=== PATIENT | male | born 1950 | race Two or more races ===

== ENCOUNTER 2020-05-07 17:28 | Inpatient (IN) | payer MEDICARE ==
[2020-05-07] MEDS ORDERED: NORMAL SALINE 1000 ML 1,000 ML IV ONE ×3 (18:31→21:27)
[2020-05-07 18:38] LABS: ABSOLUTE LYMPHOCYTES (AUTO) 0.4 10^3/uL (0.5-4.7); ABSOLUTE MONOCYTES (AUTO) 0.3 10^3/uL (0.1-1.4); ABSOLUTE NEUT (AUTO) 6.9 10^3/uL (1.7-8.2); BASOPHILS % (AUTO) 0.4 % (0-2); EOSINOPHILS % (AUTO) 0.1 % (0-6); HEMOGLOBIN 13.6 g/dL (13.5-17.0); LYMPHOCYTES % (AUTO) 5.2 % (13-45); MEAN CORPUSCULAR HGB CONC 33.9 g/dL (32.0-36.0); MEAN CORPUSCULAR VOLUME 83 fl (80-97); MONOCYTES % (AUTO) 3.9 % (3-13); PLATELET COUNT 127 10^3/uL (150-450); RED BLOOD COUNT 4.85 10^6/uL (4.35-5.55); RED CELL DISTRIBUTION WIDTH 17.7 % (11.5-14.0); SEGMENTED NEUTROPHILS % (AUTO) 90.4 % (42-78); TOTAL CELLS COUNTED % (AUTO) 100 %; WHITE BLOOD COUNT 7.7 10^3/uL (4.0-10.5)
[2020-05-07 18:46] LABS: ALBUMIN 3.6 g/dL (3.5-5.0); ALKALINE PHOSPHATASE 44 U/L (38-126); ANION GAP 10 (5-19); ASPARTATE AMINO TRANSFERASE 38 U/L (17-59); BILIRUBIN,DIRECT 0.4 mg/dL (0.0-0.4); BILIRUBIN,TOTAL 0.7 mg/dL (0.2-1.3); BLOOD UREA NITROGEN 17 mg/dL (7-20); CARBON DIOXIDE 23 mmol/L (22-30); CHLORIDE 102 mmol/L (98-107); GLUCOSE 116 mg/dL (75-110); POTASSIUM 3.6 mmol/L (3.6-5.0); TOTAL PROTEIN 6.3 g/dL (6.3-8.2)
--- NOTE | 2020-05-07 19:07 | RADIOLOGY REPORT (SQ) ---
EXAM DESCRIPTION: CHEST SINGLE VIEW IMAGES COMPLETED DATE/TIME: 05/07/2020 6:54 pm REASON FOR STUDY: cough, fever COMPARISON: None. NUMBER OF VIEWS: One view. TECHNIQUE: Single frontal radiographic view of the chest acquired. LIMITATIONS: None. FINDINGS: LUNGS AND PLEURA: No opacities, masses or pneumothorax. No pleural effusion. MEDIASTINUM AND HILAR STRUCTURES: No masses. Contour normal. HEART AND VASCULAR STRUCTURES: Heart normal in size. Normal vasculature. BONES: No acute findings. HARDWARE: None in the chest. OTHER: No other significant finding. IMPRESSION: NO SIGNIFICANT RADIOGRAPHIC FINDING IN THE CHEST. TECHNICAL DOCUMENTATION: JOB ID: [id number] 2010 [employer]- All Rights Reserved Reading location - IP/workstation name: [email or web address]
--- NOTE | 2020-05-07 19:16 | ER Document Report ---
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 this afternoon. Patient says that he suddenly developed fever, hard shaking chills, multiple episodes of vomiting generalized weakness and diffuse myalgias with association of nonproductive cough. He denies dyspnea. He took his temperature at home and says this was 103 degrees. Because he lives alone he decided he should call EMS. He took Tylenol prior to transport. During transport he received some oral Zofran. He reports minimal nausea at this time and states that he feels better overall since his temperature has come down with the antipyretic. Patient denies any specific known exposure to COVID but says he has been seeing patients in the office. States that he is routinely use masks and another preventive measures while engaged in patient care. No travel outside the area. (JEFERSON DIAZ) - Related Data Allergies/Adverse Reactions: No Known Allergies Allergy (Verified 05/07/20 17:47) Past Medical History - General Information source: Patient - Social History Smoking Status: Current Some Day Smoker Frequency of alcohol use: Occasional Drug Abuse: None Lives with: Alone Family History: Reviewed & Not Pertinent - Past Medical History Cardiac Medical History: Reports: Hx Hypercholesterolemia, Hx Hypertension Pulmonary Medical History: Reports: None Endocrine Medical History: Denies: Hx Diabetes Mellitus Type 2 Malignancy Medical History: Reports None Psychiatric Medical History: Reports: None Surgical Hx: Negative <JEFERSON DIAZ - Last Filed: 05/07/20 20:10> Review of Systems <JEFERSON DIAZ - Last Filed: 05/07/20 20:10> - Review of Systems Notes: Constitutional: As per HPI. HENT: Negative for sore throat. Eyes: Negative for visual changes. Cardiovascular: Negative for chest pain. Respiratory: As per HPI. Gastrointestinal: As per HPI. Genitourinary: Negative for dysuria. Musculoskeletal: Diffuse myalgias. Skin: Negative for rash. Neurological: Negative for headaches, focal weakness or numbness. 10 point ROS negative except as marked above and in HPI. (JEFERSON DIAZ) Physical Exam <JEFERSON DIAZ - Last Filed: 05/07/20 20:10> - Vital signs Vitals: Temp Pulse Resp BP Pulse Ox 99.6 F 86 21 H 129/78 H 97 05/07/20 18:00 05/07/20 18:00 05/07/20 18:00 05/07/20 18:00 05/07/20 18:00 - Notes Notes: GENERAL: Well-developed well-nourished male appearing somewhat younger than stated age appearing in no acute distress. SKIN: Mildly diaphoretic. Good turgor no rashes. HEAD: Normocephalic atraumatic. EYES: PERRLA. EOMI. Conjunctivae and sclerae clear. EARS: CANALS AND TMS CLEAR. NOSE: CLEAR. MOUTH: Moist mucosa. Good dentition. No stridor or edema. No drooling. NECK: Supple. No masses or thyromegaly. No adenopathy. Carotids 2+ without bruits. No JVD. BACK: Symmetrical without tenderness. CHEST: Respirations unlabored. Breath sounds clear and symmetrical. HEART: Regular rhythm. No murmur gallop or rub. ABDOMEN: Soft nontender without masses, organomegaly or rebound. Bowel sounds normally active. No bruits. GENITALIA: Deferred. EXTREMITIES: No edema. No calf tenderness. Cap refill less than 1.5 seconds. Dorsalis pedis and posterior tibial pulses 3+ and symmetrical. NEUROLOGICAL: GCS 15. Alert and oriented x3. Fluent speech. Cranial nerves II through XII intact. Sensorimotor and cerebellar normal. Normal tone. PSYCHIATRIC: Appropriate affect. (JEFERSON DIAZ) Course - Laboratory Result Diagrams: 05/07/20 18:12 05/07/20 18:12 <JEFERSON DIAZ - Last Filed: 05/07/20 20:10> - Laboratory Result Diagrams: 05/07/20 18:12 05/07/20 18:12 - Diagnostic Test Radiology reviewed: Reports reviewed - Consults Dr. madison Time consulted: 22:09 - Dr. Gagnon requested that a d-dimer, CRP and CTA of the chest PE done. He agreed to admit the patient to telemetry. <ISAK GARCIA IV - Last Filed: 05/07/20 22:11> - Re-evaluation Re-evalutation: 05/07/20 20:12 Patient is symptomatically improving with administration of IV normal saline. He remains hemodynamically stable and afebrile at this time. His CBC and comprehensive metabolic profile are unremarkable. His oxygenation is normal by pulse oximetry. His chest x-ray shows no infiltrate. COVID-19 swab has been collected and is not resulted at this time. We do not anticipate return of these results for 72 hours. Plan at this time is continue IV hydration. We still have not obtained a urinalysis. I will turn further care of this patient over to Dr. Isak Garcia at this time pending reported urinalysis. If patient remains stable clinically I think outpatient management should be appropriate. (JEFERSON DIAZ) 05/07/20 21:37 Patient currently has shaking chills, states that he does not feel well at all. Patient's temperature is now 100.9 patient states that he finds that Motrin usually helps a fever better than Tylenol for him but currently does not want to take any. 05/07/20 22:07 Patient states he is still not feeling better and now wants to take Motrin for his fever. This MD informed patient that given his return for fever, general malaise, tachycardia and return of nausea and vomiting, that this MD is recommending admission and will consult with hospitalist. Patient was agreeable to this. (ISAK GARCIA IV) - Vital Signs Vital signs: Temp Pulse Resp BP Pulse Ox 100.9 F H 86 20 129/70 H 99 05/07/20 21:26 05/07/20 18:00 05/07/20 20:01 05/07/20 20:00 05/07/20 20:00 - Laboratory Laboratory results interpreted by me: 05/07/20 05/07/20 05/07/20 18:12 18:12 20:39 RDW 17.7 H Plt Count 127 L Lymph % (Auto) 5.2 L Absolute Lymphs (auto) 0.4 L Seg Neutrophils % 90.4 H Sodium 134.5 L Glucose 116 H Urine Blood SMALL H Urine Ascorbic Acid 40 H - EKG Interpretation by Me Additional EKG results interpreted by me: 05/07/20 20:10 Twelve-lead EKG from 1852 hrs. was reviewed contemporaneously by me. Indication for study: Hypertension. Normal sinus rhythm. Heart rate 86. Normal intervals. Intervals normal. QRS axis -[address]/T wave changes. No prior tracing for comparison. Interpretation: Normal tracing. (JEFERSON DIAZ) - Consults Dr. madison Reason for consultation: 05/07/20 22:09 Fever, elevated lactic acid, possible COVID symptoms (ISAK GARCIA IV) Discharge <JEFERSON DIAZ - Last Filed: 05/07/20 20:10> - Discharge Admitting Provider: Puneet (Hospitalist) Unit Admitted: Telemetry <ISAK GARCIA IV - Last Filed: 05/07/20 22:11> - Discharge Clinical Impression: Acute viral syndrome, Suspected COVID-19 infection Fever Qualifiers: Fever type: unspecified Qualified Code(s): R50.9 - Fever, unspecified Condition: Stable Disposition: ADMITTED INPATIENT Referrals: NENO VELASCO MD [Primary Care Provider] - Follow up as needed
--- NOTE | 2020-05-07 20:39 | EKG REPORT ---
SEVERITY:- ABNORMAL ECG - SINUS RHYTHM NONSPECIFIC INFERIOR ST CHANGES ABNRM R PROG, CONSIDER ASMI OR LEAD PLACEMENT : Confirmed by: Avinash Handley MD 07-May-2020 20:39:11
[2020-05-07 20:54] LABS: APPEARANCE,URINE CLEAR; BILIRUBIN,URINE NEGATIVE (NEGATIVE); COLOR,URINE YELLOW; GLUCOSE, URINE NEGATIVE (NEGATIVE); KETONES,URINE NEGATIVE (NEGATIVE); PROTEIN,URINE NEGATIVE (NEGATIVE); URINE SPECIFIC GRAVITY 1.019; UROBILINOGEN,URINE NEGATIVE mg/dL (<2.0)
[2020-05-07] MEDS ORDERED: ONDANSETRON HCL INJ/PF 4 MG/2 ML SDV IV ONE (21:43)
[2020-05-07] MEDS ORDERED: IBUPROFEN 600 MG TABLET PO ONE (21:44)
[2020-05-07] MEDS ORDERED: MAGNESIUM HYDROXIDE SUSP 30 ML UDCUP PO PRN (22:48)
[2020-05-07] MEDS ORDERED: MAG HYDROX/AL HYDROX/SIMETH SUSP 30 ML UDCUP PO PRN (22:48)
[2020-05-07] MEDS ORDERED: PROMETHAZINE HCL INJ 25 MG/1 ML VIAL IV PRN (22:48)
[2020-05-07] MEDS ORDERED: GUAIFENESIN SYRP 200 MG/10 ML UDC PO PRN (22:57)
[2020-05-07] MEDS ORDERED: MELATONIN 5 MG TABLET PO PRN (22:57)
[2020-05-07] MEDS ORDERED: MORPHINE SULFATE 10 MG/ML INJ IV PRN ×4 (22:57→23:05)
[2020-05-07] MEDS ORDERED: CEFTRIAXONE 1 GM/D5W RTU 1 GM/50 ML RTUPB IV ONE (23:00)
[2020-05-07] MEDS ORDERED: AZITHROMYCIN 500 MG in DEXTROSE 5%-WATER 250 ML IV ONE (23:00)
[2020-05-07] MEDS: FAMOTIDINE 20 MG TABLET PO SCH (23:26)
[2020-05-07] MEDS ORDERED: AZITHROMYCIN INJ 500 MG VIAL IV PRN (23:30)
[2020-05-08] MEDS: DEXTROSE 5%-LACTATED RINGERS 1,000 ML IV PRN ×3 (01:25→17:29)
[2020-05-08] MEDS: HEPARIN SOD (PORCINE) 5,000 UNIT/ML 1 ML VIAL SUBCUT SCH ×4 (05:43→22:12)
[2020-05-08] MEDS: ACETAMINOPHEN 325 MG TABLET PO PRN ×2 (05:43→10:40)
--- NOTE | 2020-05-08 05:54 | PDOC H&P ---
History of Present Illness Admission Date/PCP: 05/07/2020 22:21 NENO VELASCO MD Patient complains of: Fever History of Present Illness: SKYLAR YOUNG is a 70 year old male who presented to the emergency room with acute fever. He admits the sudden onset of fever shortly after 2 PM today. His fever became severe as high as 103 F and was accompanied by rigorous chills. Additionally his fever was associated with generalized weakness, diffuse myalgias, a nonproductive cough and nausea with vomiting. He took Tylenol prior to the arrival of EMS to transport him to the emergency room, and this diminished his symptoms substantially. He also received Zofran sublingual administered by EMS which markedly relieved his nausea and stopped his vomiting. He denies other associated or accompanying signs and symptoms. He denies prior similar episodes. He has not identified any additional aggravating or ameliorating factors for his fever. In the emergency room he was found to have a mild thrombocytopenia and a minimal hyponatremia with an otherwise unremarkable initial laboratory and x-ray evaluation. D-dimer, CRP and ferritin levels are currently pending as is a CTA of the chest. Patient's fever returned during his ER stay and he became tachycardic and was intermittently hypoxic. Presented with the option of staying in the hospital or being treated as an outpatient he selected being hospitalized. He was therefore admitted to the hospitalist service as a PUI for COVID-19. Past Medical History Cardiac Medical History: Reports: Hyperlipidema, Hypertension Denies: Coronary Artery Disease, Myocardial Infarction Pulmonary Medical History: Denies: Asthma, Chronic Obstructive Pulmonary Disease (COPD) EENT Medical History: Denies: Cataracts, Ears - Hearing aids Neurological Medical History: Denies: Hemorrhagic CVA, Ischemic CVA, Seizures Endocrine Medical History: Denies: Diabetes Mellitus Type 1, Diabetes Mellitus Type 2, Hyperthyroidism, Hypothyroidism, Obesity Renal/ Medical History: Denies: Chronic Kidney Disease, Nephrolithiasis Malignancy Medical History: Reports: None GI Medical History: Denies: Cirrhosis, Hepatitis, Peptic Ulcer Disease Musculoskeltal Medical History: Denies: Fibromyalgia, Gout Skin Medical History: Denies: Eczema, Psoriasis Psychiatric Medical History: Denies: Alcohol Dependency, Substance Abuse, Tobacco Dependency Traumatic Medical History: Reports: None Hematology: Denies: Anemia, Bleeding Tendencies Infectious Medical History: Reports: None Past Surgical History Past Surgical History: Reports: None Social History Information Source: Patient Lives with: Alone Smoking Status: Current Some Day Smoker Electronic Cigarette use?: No Frequency of Alcohol Use: None Hx Recreational Drug Use: No Drugs: None Hx Prescription Drug Abuse: No - Advance Directive Resuscitation Status: Full Code Surrogate healthcare decision maker:: Patient opts to not provide a surrogate medical decision-maker at this time. Family History Family History: Hyperlipidemia, Hypertension. denies: CAD, DM, Malignancy Parental Family History Reviewed: Yes Children Family History Reviewed: No Sibling(s) Family History Reviewed.: Yes Medication/Allergy Allergies/Adverse Reactions: No Known Allergies Allergy (Verified 05/07/20 17:47) Review of Systems Constitutional: PRESENT: as per HPI, chills, fever(s), weakness - Generalized, other - Diffuse myalgias Eyes: ABSENT: visual disturbances, other - Eye pain Ears: ABSENT: hearing changes, other - Ear pain Nose, Mouth, and Throat: ABSENT: headache(s), sore throat Cardiovascular: ABSENT: chest pain, palpitations Respiratory: PRESENT: as per HPI, cough. ABSENT: dyspnea, hemoptysis, sputum Gastrointestinal: PRESENT: as per HPI, nausea, vomiting. ABSENT: abdominal pain, constipation, diarrhea Genitourinary: ABSENT: dysuria, hematuria Musculoskeletal: PRESENT: as per HPI, muscle weakness - Generalized, other - Diffuse myalgias. ABSENT: joint swelling Integumentary: ABSENT: pruritus, rash Neurological: ABSENT: confusion, convulsions, focal weakness, memory loss, syncope Psychiatric: ABSENT: anxiety, depression Endocrine: ABSENT: cold intolerance, heat intolerance Hematologic/Lymphatic: ABSENT: easy bleeding, easy bruising Allergic/Immunologic: ABSENT: seasonal rhinorrhea Physical Exam Vital Signs: Temp Pulse Resp BP Pulse Ox 100.9 F H 86 20 129/70 H 99 05/07/20 21:26 05/07/20 18:00 05/07/20 20:01 05/07/20 20:00 05/07/20 20:00 Intake & Output 05/05/20 05/06/20 05/07/20 23:59 23:59 23:59 Intake Total 1999 Balance 1999 Weight 71.849 kg General appearance: PRESENT: no acute distress, cooperative, well-developed Head exam: PRESENT: atraumatic, normocephalic Eye exam: PRESENT: conjunctiva pink. ABSENT: conjunctival injection, scleral icterus Ear exam: PRESENT: normal external ear exam, other - Moderate bilateral presby cusis. ABSENT: bleeding, drainage Mouth exam: PRESENT: dry mucosa, neck supple Neck exam: ABSENT: thyromegaly, tracheal deviation Respiratory exam: PRESENT: clear to auscultation [place], symmetrical, unlabored Cardiovascular exam: PRESENT: RRR. ABSENT: clicks, gallop, rubs Pulses: PRESENT: normal radial pulses, normal dorsalis pedis pul Vascular exam: PRESENT: normal capillary refill. ABSENT: pallor GI/Abdominal exam: PRESENT: normal bowel sounds, soft. ABSENT: tenderness Rectal exam: PRESENT: deferred Extremities exam: ABSENT: joint swelling, pedal edema Musculoskeletal exam: ABSENT: deformity, dislocation Neurological exam: PRESENT: alert, oriented to person, oriented to place, oriented to time, oriented to situation, CN II-XII grossly intact. ABSENT: motor sensory deficit Psychiatric exam: PRESENT: appropriate affect, normal mood Skin exam: PRESENT: dry, intact, warm. ABSENT: jaundice, rash, urticaria Results Laboratory Results: 05/07/20 18:12 05/07/20 18:12 05/07/20 05/07/20 05/07/20 18:12 18:12 18:35 WBC 7.7 RBC 4.85 Hgb 13.6 Hct 40.0 MCV 83 MCH 28.0 MCHC 33.9 RDW 17.7 H Plt Count 127 L Seg Neutrophils % 90.4 H Sodium 134.5 L Potassium 3.6 Chloride 102 Carbon Dioxide 23 Anion Gap 10 BUN 17 Creatinine 1.04 Est GFR ( Amer) > 60 Glucose 116 H Lactic Acid 2.1 Calcium 9.0 Total Bilirubin 0.7 AST 38 Alkaline Phosphatase 44 Total Protein 6.3 Albumin 3.6 Urine Color Urine Appearance Urine pH Ur Specific [place] Urine Protein Urine Glucose (UA) Urine Ketones Urine Blood Urine RBC (Auto) 05/07/20 20:39 WBC RBC Hgb Hct MCV MCH MCHC RDW Plt Count Seg Neutrophils % Sodium Potassium Chloride Carbon Dioxide Anion Gap BUN Creatinine Est GFR ( Amer) Glucose Lactic Acid Calcium Total Bilirubin AST Alkaline Phosphatase Total Protein Albumin Urine Color YELLOW Urine Appearance CLEAR Urine pH 5.0 Ur Specific [place] 1.019 Urine Protein NEGATIVE Urine Glucose (UA) NEGATIVE Urine Ketones NEGATIVE Urine Blood SMALL H Urine RBC (Auto) 77 Impressions: Chest X-Ray 05/07/20 18:30 IMPRESSION: NO SIGNIFICANT RADIOGRAPHIC FINDING IN THE CHEST. Assessment and Plan - Diagnosis (1) Acute febrile illness Is this a current diagnosis for this admission?: Yes (2) Myalgia Is this a current diagnosis for this admission?: Yes (3) Generalized weakness Is this a current diagnosis for this admission?: Yes (4) Nonproductive cough Is this a current diagnosis for this admission?: Yes (5) Nausea and vomiting Qualifiers: Vomiting type: unspecified Vomiting Intractability: non-intractable Qualified Code(s): R11.2 - Nausea with vomiting, unspecified Is this a current diagnosis for this admission?: Yes (6) Person under investigation for COVID-19 Is this a current diagnosis for this admission?: Yes (7) Hypertension Qualifiers: Hypertension type: essential hypertension Qualified Code(s): I10 - Essential (primary) hypertension Is this a current diagnosis for this admission?: Yes (8) Hyperlipidemia Qualifiers: Hyperlipidemia type: unspecified Qualified Code(s): E78.5 - Hyperlipidemia, unspecified Is this a current diagnosis for this admission?: Yes - Plan Summary Summary: Patient will be admitted to the COVID-19 unit as a PUI, where he will receive routine supportive and symptomatic cares. He will be treated with IV fluids utilizing D5LR at 167 mL/h initially. He will receive IV antibiotics utilizing Rocephin and azithromycin. He will have a CTA, d-dimer, CRP and serum ferritin performed in the ER prior to coming to the floor. He will receive Ativan 1 mg IV every 4 hours as needed for anxiety or restlessness. He will receive morphine sulfate 2 to 4 mg IV every 2 hours as needed for pain. He will be placed on a cardiac diet. CBCs, metabolic profiles and additional laboratory and/or radiographic evaluations will be obtained as appropriate. He will receive supplemental oxygen via nasal cannula as required to maintain an adequate oxygen saturation level per the O2 protocol. - Time Time Spent with patient: 15-24 minutes Medications reviewed and adjusted accordingly: Yes Anticipated Discharge Disposition: Home, Self Care Anticipated Discharge Timeframe: Undetermined - Inpatient Certification Based on my medical assessment, after consideration of the patient's comorbidities, presenting symptoms, or acuity I expect that the services needed warrant INPATIENT care.: Yes I certify that my determination is in accordance with my understanding of [employer] 's requirements for reasonable and necessary INPATIENT services [42 CFR 412.3e].: Yes Medical Necessity: Need Close Monitoring Due to Risk of Patient Decompensation, Need For IV Fluids, Need For Continuous Telemetry Monitoring, Need for Neurological Checks, Need for IV Antibiotics, Risk of Complication if Not Cared For in Hospital
[2020-05-08 06:58] LABS: HEMATOCRIT 39.2 % (37.9-51.0); HEMOGLOBIN 13.1 g/dL (13.5-17.0); MEAN CORPUSCULAR HEMOGLOBIN 27.9 pg (27.0-33.4); MEAN CORPUSCULAR HGB CONC 33.5 g/dL (32.0-36.0); MEAN CORPUSCULAR VOLUME 83 fl (80-97); PLATELET COUNT 115 10^3/uL (150-450); RED BLOOD COUNT 4.71 10^6/uL (4.35-5.55); RED CELL DISTRIBUTION WIDTH 17.4 % (11.5-14.0); WHITE BLOOD COUNT 8.9 10^3/uL (4.0-10.5)
[2020-05-08 07:05] LABS: VENOUS BLOOD BASE EXCESS -2.4 mmol/L; VENOUS BLOOD HCO3 22.1 mmol/L (20-32); VENOUS BLOOD PCO2 37.1 mmHg (35-63); VENOUS BLOOD PH 7.39 (7.30-7.42)
[2020-05-08 07:22] LABS: ANION GAP 7 (5-19); BLOOD UREA NITROGEN 12 mg/dL (7-20); CALCIUM 8.5 mg/dL (8.4-10.2); CARBON DIOXIDE 25 mmol/L (22-30); CHLORIDE 105 mmol/L (98-107); CHOLESTEROL 99.88 mg/dL (0-200); GLUCOSE 123 mg/dL (75-110); POTASSIUM 3.7 mmol/L (3.6-5.0); TRIGLYCERIDES 234 mg/dL (<150)
[2020-05-08 07:33] LABS: DIRECT LDL 31 mg/dL (<100)
[2020-05-08 07:38] LABS: VLDL CHOLESTEROL 46.8 mg/dL (10-31)
[2020-05-08] MEDS: DOCUSATE SODIUM 100 MG CAPSULE PO SCH ×2 (10:39→17:29)
[2020-05-08] MEDS: FAMOTIDINE 20 MG TABLET PO SCH ×2 (10:40→22:12)
[2020-05-08] MEDS: IBUPROFEN 600 MG TABLET PO PRN ×2 (11:17→19:51)
[2020-05-08] MEDS ORDERED: ONDANSETRON HCL INJ/PF 4 MG/2 ML SDV IV PRN (11:20)
--- NOTE | 2020-05-08 12:08 | PDOC PROGRESS REPORT ---
Subjective Progress Note for:: 05/08/20 Subjective:: Patient has felt nauseous and feverish today. Reason For Visit: FEBRILE ILLNESS,NONPRODUCTIVE COUGH,NAUSEA WITH he is a COVID PUI. Physical Exam Vital Signs: Temp Pulse Resp BP Pulse Ox 98.6 F 85 23 H 115/61 100 05/08/20 08:00 05/08/20 08:00 05/08/20 08:00 05/08/20 08:00 05/08/20 08:00 Intake & Output 05/07/20 05/08/20 05/09/20 06:59 06:59 06:59 Intake Total 2550 1000 Output Total 750 Balance 1800 1000 Weight 77 kg General appearance: PRESENT: no acute distress, cooperative, hard of hearing, thin Head exam: PRESENT: atraumatic, normocephalic Eye exam: PRESENT: conjunctiva pink, EOMI, PERRLA. ABSENT: scleral icterus Ear exam: PRESENT: normal external ear exam Mouth exam: PRESENT: moist, tongue midline Respiratory exam: PRESENT: clear to auscultation [place], decreased breath sounds, symmetrical, unlabored Cardiovascular exam: PRESENT: RRR. ABSENT: diastolic murmur, rubs, systolic murmur GI/Abdominal exam: PRESENT: normal bowel sounds, soft. ABSENT: distended, guarding, mass, organolmegaly, rebound, tenderness Rectal exam: PRESENT: deferred Extremities exam: PRESENT: full ROM Musculoskeletal exam: PRESENT: normal inspection Neurological exam: PRESENT: alert, awake, oriented to person, oriented to place, oriented to time, oriented to situation, CN II-XII grossly intact. ABSENT: motor sensory deficit Psychiatric exam: PRESENT: appropriate affect, normal mood. ABSENT: homicidal ideation, suicidal ideation Skin exam: PRESENT: dry, intact, warm. ABSENT: cyanosis, rash Results Laboratory Results: 05/08/20 06:45 05/08/20 06:45 05/07/20 05/07/20 05/07/20 18:12 18:12 18:12 WBC 7.7 RBC 4.85 Hgb 13.6 Hct 40.0 MCV 83 MCH 28.0 MCHC 33.9 RDW 17.7 H Plt Count 127 L Seg Neutrophils % 90.4 H VBG pH VBG pCO2 VBG HCO3 VBG Base Excess Sodium 134.5 L Potassium 3.6 Chloride 102 Carbon Dioxide 23 Anion Gap 10 BUN 17 Creatinine 1.04 Est GFR ( Amer) > 60 Glucose 116 H Lactic Acid Calcium 9.0 Magnesium Ferritin Total Bilirubin 0.7 AST 38 Alkaline Phosphatase 44 C-Reactive Protein 12.6 H Total Protein 6.3 Albumin 3.6 Triglycerides Cholesterol LDL Cholesterol Direct VLDL Cholesterol HDL Cholesterol TSH Urine Color Urine Appearance Urine pH Ur Specific [place] Urine Protein Urine Glucose (UA) Urine Ketones Urine Blood Urine RBC (Auto) 05/07/20 05/07/20 05/07/20 18:35 18:52 20:39 WBC RBC Hgb Hct MCV MCH MCHC RDW Plt Count Seg Neutrophils % VBG pH VBG pCO2 VBG HCO3 VBG Base Excess Sodium Potassium Chloride Carbon Dioxide Anion Gap BUN Creatinine Est GFR ( Amer) Glucose Lactic Acid 2.1 Calcium Magnesium Ferritin 9.26 L Total Bilirubin AST Alkaline Phosphatase C-Reactive Protein Total Protein Albumin Triglycerides Cholesterol LDL Cholesterol Direct VLDL Cholesterol HDL Cholesterol TSH Urine Color YELLOW Urine Appearance CLEAR Urine pH 5.0 Ur Specific [place] 1.019 Urine Protein NEGATIVE Urine Glucose (UA) NEGATIVE Urine Ketones NEGATIVE Urine Blood SMALL H Urine RBC (Auto) 77 05/08/20 05/08/20 05/08/20 00:35 06:45 06:45 WBC 8.9 RBC 4.71 Hgb 13.1 L Hct 39.2 MCV 83 MCH 27.9 MCHC 33.5 RDW 17.4 H Plt Count 115 L Seg Neutrophils % VBG pH VBG pCO2 VBG HCO3 VBG Base Excess Sodium 137.1 Potassium 3.7 Chloride 105 Carbon Dioxide 25 Anion Gap 7 BUN 12 Creatinine 0.94 Est GFR ( Amer) > 60 Glucose 123 H Lactic Acid 2.9 H Calcium 8.5 Magnesium 1.6 Ferritin Total Bilirubin AST Alkaline Phosphatase C-Reactive Protein Total Protein Albumin Triglycerides 234 H Cholesterol 99.88 LDL Cholesterol Direct 31 VLDL Cholesterol 46.8 H HDL Cholesterol 35 L TSH Urine Color Urine Appearance Urine pH Ur Specific [place] Urine Protein Urine Glucose (UA) Urine Ketones Urine Blood Urine RBC (Auto) 05/08/20 05/08/20 05/08/20 06:45 06:45 06:45 WBC RBC Hgb Hct MCV MCH MCHC RDW Plt Count Seg Neutrophils % VBG pH 7.39 VBG pCO2 37.1 VBG HCO3 22.1 VBG Base Excess -2.4 Sodium Potassium Chloride Carbon Dioxide Anion Gap BUN Creatinine Est GFR ( Amer) Glucose Lactic Acid 2.5 H Calcium Magnesium Ferritin Total Bilirubin AST Alkaline Phosphatase C-Reactive Protein Total Protein Albumin Triglycerides Cholesterol LDL Cholesterol Direct VLDL Cholesterol HDL Cholesterol TSH 1.23 Urine Color Urine Appearance Urine pH Ur Specific [place] Urine Protein Urine Glucose (UA) Urine Ketones Urine Blood Urine RBC (Auto) Impressions: Chest X-Ray 05/07/20 18:30 IMPRESSION: NO SIGNIFICANT RADIOGRAPHIC FINDING IN THE CHEST. Assessment & Plan - Diagnosis (1) Acute febrile illness Is this a current diagnosis for this admission?: Yes Plan: This could be a variety of ailments from a GI enteritis, to COVID-which right now I doubt. (2) Nausea and vomiting Qualifiers: Vomiting type: unspecified Vomiting Intractability: non-intractable Qualified Code(s): R11.2 - Nausea with vomiting, unspecified Is this a current diagnosis for this admission?: Yes Plan: Still present but improved with zofran. Able to eat if desired. Will continue IVF until then (3) Person under investigation for COVID-19 Is this a current diagnosis for this admission?: Yes Plan: Test is pending right now. - Time Time Spent with patient: 15-24 minutes Level of Care: MEDICAL Medications reviewed and adjusted accordingly: Yes Anticipated discharge: Home Anticipated DC Timeframe: within 48 hours - Inpatient Certification Based on my medical assessment, after consideration of the patient's comorbi dities, presenting symptoms, or acuity I expect that the services needed warrant INPATIENT care.: Yes I certify that my determination is in accordance with my understanding of Medicare's requirements for reasonable and necessary INPATIENT services [42 CFR 412.3e].: Yes Medical Necessity: Failure to Improve With Outpatient Therapy - Plan Summary Plan Summary: When nausea and vomiting have abated and he can eat and drink on his own and take tylenol, hope to D/C home.
[2020-05-08] MEDS: LORAZEPAM INJ 2 MG/1 ML VIAL IV PRN ×2 (13:39→22:22)
[2020-05-08] MEDS ORDERED: DEXAMETHASONE SOD PHOS INJ 10 MG/1 ML VIAL IV ONE (21:00)
[2020-05-08] MEDS: CEFTRIAXONE 1 GM/D5W RTU 1 GM/50 ML RTUPB IV SCH (21:30)
[2020-05-08] MEDS: ATORVASTATIN CALCIUM 40 MG TABLET PO SCH (22:12)
[2020-05-08] MEDS: AZITHROMYCIN 500 MG in DEXTROSE 5%-WATER 250 ML IV SCH (22:15)
[2020-05-09] MEDS: DEXTROSE 5%-LACTATED RINGERS 1,000 ML IV PRN (01:13)
[2020-05-09 05:02] LABS: ABSOLUTE LYMPHOCYTES (AUTO) 0.3 10^3/uL (0.5-4.7); ABSOLUTE MONOCYTES (AUTO) 0.1 10^3/uL (0.1-1.4); ABSOLUTE NEUT (AUTO) 5.7 10^3/uL (1.7-8.2); BASOPHILS % (AUTO) 0.1 % (0-2); HEMATOCRIT 37.2 % (37.9-51.0); HEMOGLOBIN 12.4 g/dL (13.5-17.0); LYMPHOCYTES % (AUTO) 5.3 % (13-45); MEAN CORPUSCULAR HEMOGLOBIN 27.9 pg (27.0-33.4); MEAN CORPUSCULAR HGB CONC 33.4 g/dL (32.0-36.0); MEAN CORPUSCULAR VOLUME 84 fl (80-97); MONOCYTES % (AUTO) 1.8 % (3-13); PLATELET COUNT 100 10^3/uL (150-450); RED BLOOD COUNT 4.45 10^6/uL (4.35-5.55); RED CELL DISTRIBUTION WIDTH 17.5 % (11.5-14.0); SEGMENTED NEUTROPHILS % (AUTO) 92.8 % (42-78); TOTAL CELLS COUNTED % (AUTO) 100 %; WHITE BLOOD COUNT 6.1 10^3/uL (4.0-10.5)
[2020-05-09 05:21] LABS: ANION GAP 6 (5-19); BLOOD UREA NITROGEN 13 mg/dL (7-20); CALCIUM 8.5 mg/dL (8.4-10.2); CARBON DIOXIDE 24 mmol/L (22-30); CHLORIDE 108 mmol/L (98-107); GLUCOSE 194 mg/dL (75-110); POTASSIUM 3.9 mmol/L (3.6-5.0)
[2020-05-09] MEDS: HEPARIN SOD (PORCINE) 5,000 UNIT/ML 1 ML VIAL SUBCUT SCH ×3 (05:56→21:05)
[2020-05-09] MEDS: PANTOPRAZOLE SODIUM 40 MG TABLET.DR PO SCH ×2 (05:56→18:38)
[2020-05-09] MEDS: DOCUSATE SODIUM 100 MG CAPSULE PO SCH ×2 (09:28→18:38)
[2020-05-09] MEDS: DEXAMETHASONE SOD PHOSPHATE INJ 4 MG/1 ML VIAL IV SCH ×2 (09:44→21:05)
[2020-05-09] MEDS: FAMOTIDINE 20 MG TABLET PO SCH ×2 (09:45→21:04)
[2020-05-09] MEDS ORDERED: NORMAL SALINE 1000 ML 1,000 ML IV PRN (12:00)
--- NOTE | 2020-05-09 12:01 | PDOC DISCHARGE SUMMARY ---
Impression - Admit/DC Date/PCP Admission Date/Primary Care Provider: 05/07/20 22:53 NENO VELASCO MD Discharge Date: 05/09/20 - Assessment Summary: Patient will be admitted to the [facility] unit as a PUI, where he will receive r outine supportive and symptomatic cares. He will be treated with IV fluids utilizing D5LR at 167 mL/h initially. He will receive IV antibiotics utilizing Rocephin and azithromycin. He will have a CTA, d-dimer, CRP and serum ferritin performed in the ER prior to coming to the floor. He will receive Ativan 1 mg IV every 4 hours as needed for anxiety or restlessness. He will receive morphine sulfate 2 to 4 mg IV every 2 hours as needed for pain. He will be placed on a cardiac diet. CBCs, metabolic profiles and additional laboratory and/or radiographic evaluations will be obtained as appropriate. He will receive supplemental oxygen via nasal cannula as required to maintain an adequate oxygen saturation level per the O2 protocol. - Additional Information Resuscitation Status: Full Code Referrals: NENO VELASCO MD [Primary Care Provider] - Follow up as needed Home Medications: Armodafinil 250 mg PO DAILY 05/08/20 Atorvastatin Calcium [Lipitor 40 mg Tablet] 40 mg PO QHS 05/08/20 Dutasteride 0.5 mg PO DAILY 05/08/20 Escitalopram Oxalate [Lexapro 10 mg Tablet] 20 mg PO QHS 05/08/20 Fenofibrate,Micronized [Fenofibrate] 134 mg PO DAILY 05/08/20 Lisinopril [Prinivil 10 mg Tablet] 60 mg PO DAILY 05/08/20 Nebivolol HCl [Bystolic] 20 mg PO DAILY 05/08/20 Pantoprazole Sodium [Protonix [address] Tablet] 40 mg PO BID 05/08/20 Testosterone 2 pump TOP DAILY MDD ONE PUMP TO EACH ARM 05/08/20 Zolpidem Tartrate [Ambien Cr] 12.5 mg PO QHS 05/08/20 History of Present Illiness History of Present Illness: SKYLAR YOUNG is a 70 year old male Physical Exam Vital Signs: Temp Pulse Resp BP Pulse Ox 97.8 F 71 19 143/86 H 95 05/09/20 08:33 05/09/20 08:23 05/09/20 08:23 05/09/20 08:23 05/09/20 08:23 Intake & Output 05/08/20 05/09/20 05/10/20 06:59 06:59 06:59 Intake Total 2550 3551 1130 Output Total 750 1630 Balance 1800 1921 1130 Weight 77 kg 71.7 kg Respiratory exam: PRESENT: clear to auscultation cleopatra Cardiovascular exam: PRESENT: tachycardia Results Laboratory Results: WBC 6.1 10^3/uL (4.0-10.5) 05/09/20 04:52 RBC 4.45 10^6/uL (4.35-5.55) 05/09/20 04:52 Hgb 12.4 g/dL (13.5-17.0) L 05/09/20 04:52 Hct 37.2 % (37.9-51.0) L 05/09/20 04:52 MCV 84 fl (80-97) 05/09/20 04:52 MCH 27.9 pg (27.0-33.4) 05/09/20 04:52 MCHC 33.4 g/dL (32.0-36.0) 05/09/20 04:52 RDW 17.5 % (11.5-14.0) H 05/09/20 04:52 Plt Count 100 10^3/uL (150-450) L 05/09/20 04:52 Lymph % (Auto) 5.3 % (13-45) L 05/09/20 04:52 Atkinson % (Auto) 1.8 % (3-13) L 05/09/20 04:52 Eos % (Auto) 0.0 % (0-6) 05/09/20 04:52 Baso % (Auto) 0.1 % (0-2) 05/09/20 04:52 Absolute Neuts (auto) 5.7 10^3/uL (1.7-8.2) 05/09/20 04:52 Absolute Lymphs (auto) 0.3 10^3/uL (0.5-4.7) L 05/09/20 04:52 Absolute Monos (auto) 0.1 10^3/uL (0.1-1.4) 05/09/20 04:52 Absolute Eos (auto) 0.0 10^3/uL (0.0-0.6) 05/09/20 04:52 Absolute Basos (auto) 0.0 10^3/uL (0.0-0.2) 05/09/20 04:52 Seg Neutrophils % 92.8 % (42-78) H 05/09/20 04:52 D-Dimer 0.94 ug/mL (0.00-0.50) H 05/08/20 00:35 VBG pH 7.39 (7.30-7.42) 05/08/20 06:45 VBG pCO2 37.1 mmHg (35-63) 05/08/20 06:45 VBG HCO3 22.1 mmol/L (20-32) 05/08/20 06:45 VBG Base Excess -2.4 mmol/L 05/08/20 06:45 Sodium 137.8 mmol/L (137-145) 05/09/20 04:52 Potassium 3.9 mmol/L (3.6-5.0) 05/09/20 04:52 Chloride 108 mmol/L (98-107) H 05/09/20 04:52 Carbon Dioxide 24 mmol/L (22-30) 05/09/20 04:52 Anion Gap 6 (5-19) 05/09/20 04:52 BUN 13 mg/dL (7-20) 05/09/20 04:52 Creatinine 0.94 mg/dL (0.52-1.25) 05/09/20 04:52 Est GFR ( Amer) > 60 (>60) 05/09/20 04:52 Est GFR (MDRD) Non-Af > 60 (>60) 05/09/20 04:52 Glucose 194 mg/dL (75-110) H 05/09/20 04:52 Lactic Acid 2.5 mmol/L (0.7-2.1) H 05/08/20 06:45 Calcium 8.5 mg/dL (8.4-10.2) 05/09/20 04:52 Magnesium 1.6 mg/dL (1.6-2.3) 05/08/20 06:45 Ferritin 9.26 ng/mL (17.9-464.0) L 05/07/20 18:52 Total Bilirubin 0.7 mg/dL (0.2-1.3) 05/07/20 18:12 Direct Bilirubin 0.4 mg/dL (0.0-0.4) 05/07/20 18:12 Neonat Total Bilirubin Not Reportable 05/07/20 18:12 Neonat Direct Bilirubin Not Reportable 05/07/20 18:12 Neonat Indirect Bili Not Reportable 05/07/20 18:12 AST 38 U/L (17-59) 05/07/20 18:12 ALT 17 U/L (<50) 05/07/20 18:12 Alkaline Phosphatase 44 U/L (38-126) 05/07/20 18:12 C-Reactive Protein 12.6 mg/L (<10.0) H 05/07/20 18:12 Total Protein 6.3 g/dL (6.3-8.2) 05/07/20 18:12 Albumin 3.6 g/dL (3.5-5.0) 05/07/20 18:12 Triglycerides 234 mg/dL (<150) H 05/08/20 06:45 Cholesterol 99.88 mg/dL (0-200) 05/08/20 06:45 LDL Cholesterol Direct 31 mg/dL (<100) 05/08/20 06:45 VLDL Cholesterol 46.8 mg/dL (10-31) H 05/08/20 06:45 HDL Cholesterol 35 mg/dL (>40) L 05/08/20 06:45 TSH 1.23 uIU/mL (0.47-4.68) 05/08/20 06:45 Urine Color YELLOW 05/07/20 20:39 Urine Appearance CLEAR 05/07/20 20:39 Urine pH 5.0 (5.0-9.0) 05/07/20 20:39 Ur Specific [place] 1.019 05/07/20 20:39 Urine Protein NEGATIVE mg/dL (NEGATIVE) 05/07/20 20:39 Urine Glucose (UA) NEGATIVE mg/dL (NEGATIVE) 05/07/20 20:39 Urine Ketones NEGATIVE mg/dL (NEGATIVE) 05/07/20 20:39 Urine Blood SMALL (NEGATIVE) H 05/07/20 20:39 Urine Nitrite (Reflex) NEGATIVE (NEGATIVE) 05/07/20 20:39 Urine Bilirubin NEGATIVE (NEGATIVE) 05/07/20 20:39 Urine Urobilinogen NEGATIVE mg/dL (<2.0) 09/05/20 20:39 Leukocyte Esterase Rfl NEGATIVE (NEGATIVE) 05/07/20 20:39 Urine RBC (Auto) 77 /HPF 05/07/20 20:39 Urine WBC (Reflex) 2 /HPF 05/07/20 20:39 Squamous Epi Cells Auto <1 /HPF 05/07/20 20:39 Urine Mucus (Auto) FEW /LPF 05/07/20 20:39 Urine Ascorbic Acid 40 (NEGATIVE) H 05/07/20 20:39 COVID-19 Source NASOPHARYNGEAL 05/07/20 18:59 COVID-19 ([place]) NOT DETECTED 05/07/20 18:59 Impressions: Chest X-Ray 05/07/20 18:30 IMPRESSION: NO SIGNIFICANT RADIOGRAPHIC FINDING IN THE CHEST.
[2020-05-09] MEDS: CEFTRIAXONE 1 GM/D5W RTU 1 GM/50 ML RTUPB IV SCH (21:04)
[2020-05-09] MEDS: ATORVASTATIN CALCIUM 40 MG TABLET PO SCH (21:05)
[2020-05-09] MEDS: ZOLPIDEM TARTRATE 5 MG TABLET PO SCH (21:05)
[2020-05-09] MEDS: ESCITALOPRAM OXALATE 10 MG TABLET PO SCH (21:12)
[2020-05-09] MEDS ORDERED: IPRATROPIUM/ALBUTEROL 0.5-2.5 MG/3 ML AMPUL NEB ONE (21:33)
[2020-05-09] MEDS ORDERED: ZOLPIDEM TARTRATE 5 MG TABLET PO SCH (22:00)
[2020-05-09] MEDS ORDERED: AZITHROMYCIN INJ 500 MG VIAL IV ONE (22:18)
[2020-05-09] MEDS: AZITHROMYCIN 500 MG in DEXTROSE 5%-WATER 250 ML IV SCH (22:45)
[2020-05-10] MEDS: IPRATROPIUM/ALBUTEROL 0.5-2.5 MG/3 ML AMPUL NEB PRN ×3 (00:46→12:30)
[2020-05-10] MEDS: HEPARIN SOD (PORCINE) 5,000 UNIT/ML 1 ML VIAL SUBCUT SCH ×3 (05:09→21:30)
[2020-05-10] MEDS: PANTOPRAZOLE SODIUM 40 MG TABLET.DR PO SCH ×2 (05:09→17:05)
[2020-05-10] MEDS: DUTASTERIDE 0.5 MG CAPSULE PO SCH (09:42)
[2020-05-10] MEDS: DOCUSATE SODIUM 100 MG CAPSULE PO SCH (09:42)
[2020-05-10] MEDS: FAMOTIDINE 20 MG TABLET PO SCH ×2 (09:42→21:30)
[2020-05-10] MEDS: NEBIVOLOL HCL 10 MG TABLET PO SCH (09:42)
[2020-05-10] MEDS: DEXAMETHASONE SOD PHOSPHATE INJ 4 MG/1 ML VIAL IV SCH ×2 (09:43→21:35)
[2020-05-10] MEDS ORDERED: LISINOPRIL 10 MG TABLET PO SCH (10:00)
[2020-05-10] MEDS ORDERED: (PENDING PHARMACY ID) (Nebivolol Hcl [Bystolic] 20 MG) PO SCH (10:00)
--- NOTE | 2020-05-10 11:45 | PDOC PROGRESS REPORT ---
Subjective Progress Note for:: 05/09/20 Subjective:: feeling better but slightly light headed Reason For Visit: FEBRILE ILLNESS,NONPRODUCTIVE COUGH,NAUSEA WITH Physical Exam Vital Signs: Temp Pulse Resp BP Pulse Ox 98.3 F 93 24 H 132/74 H 90 L 05/10/20 08:41 05/10/20 07:33 05/10/20 07:33 05/10/20 07:33 05/10/20 07:33 Intake & Output 05/09/20 05/10/20 05/11/20 06:59 06:59 06:59 Intake Total 3551 2660 130 Output Total 1630 1570 200 Balance 1921 1090 -70 Weight 71.7 kg 76.8 kg General appearance: PRESENT: cooperative, mild distress, well-developed Ear exam: PRESENT: normal external ear exam. ABSENT: bleeding, drainage Respiratory exam: PRESENT: clear to auscultation cleopatra, symmetrical, unlabored. ABSENT: rales, rhonchi, tachypnea, wheezes Cardiovascular exam: PRESENT: RRR, +S1, +S2. ABSENT: bradycardia, diastolic murmur, irregular rhythm, systolic murmur, tachycardia GI/Abdominal exam: PRESENT: normal bowel sounds, soft. ABSENT: tenderness Neurological exam: PRESENT: alert, awake, oriented to person, oriented to place, oriented to time, oriented to situation, CN II-XII grossly intact. ABSENT: altered Psychiatric exam: PRESENT: appropriate affect. ABSENT: agitated, anxious Focused psych exam: ABSENT: delusional, paranoid, restlessness Results Laboratory Results: 05/09/20 04:52 05/09/20 04:52 Impressions: Chest X-Ray 05/07/20 18:30 IMPRESSION: NO SIGNIFICANT RADIOGRAPHIC FINDING IN THE CHEST. Assessment and Plan - Diagnosis (1) Person under investigation for COVID-19 Is this a current diagnosis for this admission?: Yes Plan: ruled out (2) Acute febrile illness Is this a current diagnosis for this admission?: Yes Plan: possible viral pneumonia. continue current treatment (3) Hypertension Qualifiers: Hypertension type: essential hypertension Qualified Code(s): I10 - Essential (primary) hypertension Is this a current diagnosis for this admission?: Yes Plan: resume antihypertensive meds (4) Nausea and vomiting Qualifiers: Vomiting type: unspecified Vomiting Intractability: non-intractable Qualified Code(s): R11.2 - Nausea with vomiting, unspecified Is this a current diagnosis for this admission?: Yes Plan: resolved (5) Hyperlipidemia Qualifiers: Hyperlipidemia type: unspecified Qualified Code(s): E78.5 - Hyperlipidemia, unspecified Is this a current diagnosis for this admission?: Yes Plan: cont statin therapy - Plan Summary Summary: Patient will be admitted to the [facility]- unit as a PUI, where he will receive routine supportive and symptomatic cares. He will be treated with IV fluids utilizing D5LR at 167 mL/h initially. He will receive IV antibiotics utilizing Rocephin and azithromycin. He will have a CTA, d-dimer, CRP and serum ferritin performed in the ER prior to coming to the floor. He will receive Ativan 1 mg IV every 4 hours as needed for anxiety or restlessness. He will receive morphine sulfate 2 to 4 mg IV every 2 hours as needed for pain. He will be placed on a cardiac diet. CBCs, metabolic profiles and additional laboratory and/or radiographic evaluations will be obtained as appropriate. He will receive supplemental oxygen via nasal cannula as required to maintain an adequate oxygen saturation level per the O2 protocol. - Time Time Spent with patient: 15-24 minutes Medications reviewed and adjusted accordingly: Yes Anticipated Discharge Disposition: Home, Self Care Anticipated Discharge Timeframe: within 72 hours
[2020-05-10] MEDS ORDERED: MORPHINE SULFATE 10 MG/ML INJ IV PRN (12:33)
[2020-05-10] MEDS: IPRATROPIUM/ALBUTEROL 0.5-2.5 MG/3 ML AMPUL NEB SCH ×4 (12:57→23:45)
[2020-05-10 13:00] LABS: ARTERIAL BLOOD BASE EXCESS -3.1 mmol/L; ARTERIAL BLOOD H2CO3 0.81 mmol/L (1.05-1.35); ARTERIAL BLOOD HCO3 19.3 mmol/L (20-24); ARTERIAL BLOOD O2 SATURATION 89.1 % (94-98); ARTERIAL BLOOD PH 7.47 (7.35-7.45); ARTERIAL BLOOD PO2 51.1 mmHg (80-100); ARTERIAL BLOOD TOTAL CO2 20.1 mmol/L (23-27)
[2020-05-10 13:06] LABS: ARTERIAL BLOOD FIO2 6L
--- NOTE | 2020-05-10 13:50 | PDOC PROGRESS REPORT ---
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 He states that he feels okay when at rest, in bed, but develops intense SOB, EDWARDS with minimal exertion, such as walking to the bathroom. He is resistant to wearing supplemental O2 when ambulating, stating that he just needs "breathing treatments every 2 hours" instead. He has repeatedly requested to be moved to the ICU for a higher level of care, despite the fact that he is saturating 95%+ on 2-3 L O2 via NC. Reason For Visit: Acute Hypoxemic Respiratory Failure due to Acute COPD Exacerbation Physical Exam Vital Signs: Temp Pulse Resp BP Pulse Ox 98.3 F 97 24 H 132/74 H 90 L 05/10/20 08:41 05/10/20 12:34 05/10/20 12:34 05/10/20 07:33 05/10/20 12:34 Intake & Output 05/09/20 05/10/20 05/11/20 06:59 06:59 06:59 Intake Total 3551 2660 130 Output Total 1630 1570 200 Balance 1921 1090 -70 Weight 71.7 kg 76.8 kg Additional comments: General: anxious elderly gentleman Head: normocephalic, atraumatic Eyes: anicteric sclera ENT: dry mucus membranes, no oropharyngeal erythema/exudate Neck: no lymphadenopathy, no JVD Lungs: poor air movement, very wheezy throughout, no crackles Heart: regular rate and rhythm, no murmurs/rubs/gallops Abdomen: normoactive bowel sounds, soft, non-tender, non-distended : no CVA tenderness, no suprapubic tenderness Extremities: warm and well perfused, no edema Vascular: 2+ peripheral pulses in all extremities Neuro: A&Ox2, CN II-XII in tact Skin: no rash Results Laboratory Results: 05/09/20 04:52 05/09/20 04:52 05/10/20 12:51 Carbonic Acid 0.81 L HCO3/H2CO3 Ratio 23:1 ABG pH 7.47 H ABG pCO2 27.0 L ABG pO2 51.1 L ABG HCO3 19.3 L ABG O2 Saturation 89.1 L ABG Base Excess -3.1 FiO2 6L Impressions: Chest X-Ray 05/07/20 18:30 IMPRESSION: NO SIGNIFICANT RADIOGRAPHIC FINDING IN THE CHEST. 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 In the ED, he was found to be hypoxemic. He notes that he has 2-3 such episodes per year, normally treated with steroids and breathing treatments in urgent care. He does not have a PCP or Instructional Interventionist and last PFTs were many years ago; at that time, he states he was diagnosed with "mild COPD" but has not been prescribed any inhaler medications as treatment. He does note that he occasionally uses an albuterol MDI which does not seem to help his symptoms. He also endorses a chronic dry cough. Acute Hypoxemic Respiratory Failure Acute COPD Exacerbation - CXR on admission showed no evidence of PNA and he was Covid-19 negative - recheck CXR, ABG today - supplemental O2 PRN saturation >88% - I suspect he likely has some chronic hypoxemia with exertion due to chronic COPD, and will likely require home O2 on discharge. He will need outpatient pulmonology follow up for screening CT chest and repeat PFTs when he has recovered from this acute episode. - he would benefit from treatment with Advair/Spiriva upon discharge - for now, will continue DUONEBS Q4H scheduled as well as IV steroids - continue antibiotics for total 5 day course of therapy Anxiety - can get low dose morphine for breathlessness and Ativan for anxiety as needed SHERLYN - wears CPAP at night, continue inpatient DVT ppx: Lovenox - Time Time Spent with patient: 25-34 minutes Anticipated Discharge Disposition: Home, Self Care Anticipated Discharge Timeframe: within 72 hours
[2020-05-10] MEDS ORDERED: ONDANSETRON HCL INJ/PF 4 MG/2 ML SDV IV PRN (14:00)
[2020-05-10] MEDS ORDERED: PROMETHAZINE HCL INJ 25 MG/1 ML VIAL IV PRN (14:00)
[2020-05-10 15:04] LABS: ANION GAP 10 (5-19); BLOOD UREA NITROGEN 16 mg/dL (7-20); CALCIUM 8.6 mg/dL (8.4-10.2); CARBON DIOXIDE 22 mmol/L (22-30); CHLORIDE 103 mmol/L (98-107); GLUCOSE 119 mg/dL (75-110); POTASSIUM 3.9 mmol/L (3.6-5.0)
[2020-05-10] MEDS ORDERED: SIMETHICONE 80 MG TAB.CHEW PO PRN (15:34)
--- NOTE | 2020-05-10 16:09 | RADIOLOGY REPORT (SQ) ---
EXAM DESCRIPTION: CHEST SINGLE VIEW IMAGES COMPLETED DATE/TIME: 05/10/2020 3:42 pm REASON FOR STUDY: worsening hypoxia COMPARISON: 05/07/2020. EXAM PARAMETERS: NUMBER OF VIEWS: One view. TECHNIQUE: Single frontal radiographic view of the chest acquired. RADIATION DOSE: NA LIMITATIONS: None. FINDINGS: LUNGS AND PLEURA: Bilateral airspace disease, more confluent in the right hilar region. N o large effusions. MEDIASTINUM AND HILAR STRUCTURES: No masses. Contour normal. HEART AND VASCULAR STRUCTURES: Heart normal in size. Normal vasculature. BONES: No acute findings. HARDWARE: None in the chest. OTHER: No other significant finding. IMPRESSION: Rehydration versus progressing bilateral pneumonia. TECHNICAL DOCUMENTATION: JOB ID: [id number] 2010 [employer]- All Rights Reserved Reading location - IP/workstation name: [email or web address]
[2020-05-10] MEDS ORDERED: FUROSEMIDE INJ/PF 40 MG/4 ML SDV IV ONE (16:50)
[2020-05-10] MEDS ORDERED: MAGNESIUM SULFATE/D5W 1 GM/100 ML RTUPB IV ONE (17:30)
[2020-05-10] MEDS: MAGNESIUM SULFATE 1 GM/D5W 100 ML IV SCH ×2 (17:57→19:13)
[2020-05-10] MEDS ORDERED: POTASSIUM CHLORIDE 20 MEQ/50 ML RTU IV ONE ×3 (18:15→19:30)
[2020-05-10] MEDS: ACETAMINOPHEN 325 MG TABLET PO PRN (20:26)
[2020-05-10] MEDS: LORAZEPAM INJ 2 MG/1 ML VIAL IV PRN (21:30)
[2020-05-10] MEDS: ATORVASTATIN CALCIUM 40 MG TABLET PO SCH (21:30)
[2020-05-10] MEDS: ESCITALOPRAM OXALATE 10 MG TABLET PO SCH (21:30)
[2020-05-10] MEDS: ZOLPIDEM TARTRATE 5 MG TABLET PO SCH (21:45)
[2020-05-10] MEDS: AZITHROMYCIN 500 MG in DEXTROSE 5%-WATER 250 ML IV SCH (22:30)
[2020-05-10] MEDS: CEFTRIAXONE 1 GM/D5W RTU 1 GM/50 ML RTUPB IV SCH (22:30)
[2020-05-11] MEDS: IPRATROPIUM/ALBUTEROL 0.5-2.5 MG/3 ML AMPUL NEB SCH ×6 (04:47→23:56)
[2020-05-11] MEDS: PANTOPRAZOLE SODIUM 40 MG TABLET.DR PO SCH ×2 (05:20→17:20)
[2020-05-11] MEDS: HEPARIN SOD (PORCINE) 5,000 UNIT/ML 1 ML VIAL SUBCUT SCH ×3 (05:20→21:10)
[2020-05-11 06:50] LABS: HEMATOCRIT 33.6 % (37.9-51.0); HEMOGLOBIN 11.6 g/dL (13.5-17.0); MEAN CORPUSCULAR HGB CONC 34.4 g/dL (32.0-36.0); MEAN CORPUSCULAR VOLUME 81 fl (80-97); PLATELET COUNT 128 10^3/uL (150-450); RED BLOOD COUNT 4.13 10^6/uL (4.35-5.55); RED CELL DISTRIBUTION WIDTH 17.5 % (11.5-14.0); WHITE BLOOD COUNT 8.8 10^3/uL (4.0-10.5)
[2020-05-11] MEDS: NEBIVOLOL HCL 10 MG TABLET PO SCH (09:07)
[2020-05-11] MEDS: FAMOTIDINE 20 MG TABLET PO SCH ×2 (09:07→21:18)
[2020-05-11] MEDS: DUTASTERIDE 0.5 MG CAPSULE PO SCH (09:08)
[2020-05-11] MEDS: DEXAMETHASONE SOD PHOSPHATE INJ 4 MG/1 ML VIAL IV SCH ×2 (09:08→21:19)
[2020-05-11] MEDS: LISINOPRIL 10 MG TABLET PO SCH (09:08)
[2020-05-11] MEDS ORDERED: LORAZEPAM INJ 2 MG/1 ML VIAL IV PRN (10:09)
[2020-05-11] MEDS ORDERED: FUROSEMIDE INJ/PF 20 MG/2 ML SDV IV ONE (10:31)
[2020-05-11] MEDS: LORAZEPAM INJ 2 MG/1 ML VIAL IV PRN ×2 (12:55→21:19)
[2020-05-11 15:22] LABS: ANION GAP 11 (5-19); BLOOD UREA NITROGEN 16 mg/dL (7-20); CALCIUM 8.9 mg/dL (8.4-10.2); CARBON DIOXIDE 24 mmol/L (22-30); CHLORIDE 100 mmol/L (98-107); GLUCOSE 132 mg/dL (75-110); POTASSIUM 3.9 mmol/L (3.6-5.0)
--- NOTE | 2020-05-11 17:20 | PDOC PROGRESS REPORT ---
Subjective Progress Note for:: 05/11/20 Subjective:: He is feeling much improved today. He is saturating well on NC, no longer requiring BIPAP. Feels like the Lasix yesterday dramatically helped. He states that he has been having a hacking, productive cough and phlegm has scant red blood mixed in it. Reason For Visit: ACUTE HYPOXEMIC RESPIRATORY FAILURE Physical Exam Vital Signs: Temp Pulse Resp BP Pulse Ox 97.5 F 87 18 149/95 H 95 05/11/20 15:10 05/11/20 15:10 05/11/20 15:10 05/11/20 15:10 05/11/20 15:10 Intake & Output 05/10/20 05/11/20 05/12/20 06:59 06:59 06:59 Intake Total 2660 1480 Output Total 1570 1700 Balance 1090 -220 Weight 76.8 kg 76.8 kg General appearance: PRESENT: no acute distress Head exam: PRESENT: atraumatic Eye exam: ABSENT: scleral icterus Mouth exam: ABSENT: dry mucosa Throat exam: ABSENT: post pharyngeal erythema Neck exam: PRESENT: JVD Respiratory exam: PRESENT: accessory muscle use, crackles, prolonged expiratory phas, wheezes Cardiovascular exam: PRESENT: RRR GI/Abdominal exam: PRESENT: normal bowel sounds, soft. ABSENT: distended, tenderness Extremities exam: PRESENT: pedal edema Neurological exam: PRESENT: alert, awake, oriented to person, oriented to place, oriented to time, oriented to situation Psychiatric exam: PRESENT: anxious Skin exam: ABSENT: rash Results Laboratory Results: 05/11/20 05:52 05/11/20 05:52 WBC 8.8 RBC 4.13 L Hgb 11.6 L Hct 33.6 L MCV 81 MCH 28.0 MCHC 34.4 RDW 17.5 H Plt Count 128 L Impressions: Chest X-Ray 05/10/20 00:00 IMPRESSION: Rehydration versus progressing bilateral pneumonia. 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 In the ED, he was found to be hypoxemic. He notes that he has 2-3 such episodes per year, normally treated with steroids and breathing treatments in urgent care. He does not have a PCP or Spanish Instructor and last PFTs were many years ago; at that time, he states he was diagnosed with "mild COPD" but has not been prescribed any inhaler medications as treatment. He does note that he occasionally uses an albuterol MDI which does not seem to help his symptoms. He also endorses a chronic dry cough. Acute Hypoxemic Respiratory Failure Acute COPD Exacerbation Suspected COVID Pneumonia - CXR on admission showed no evidence of PNA and he was Covid-19 negative - repeat CXR on 05/10 concerning for bilateral pneumonia +/- fluid, repeat Covid- 19 test sent on 05/11 - supplemental O2 PRN saturation >88% - I suspect he likely has some chronic hypoxemia with exertion due to chronic COPD, and will likely require home O2 on discharge. He will need outpatient pulmonology follow up for screening CT chest and repeat PFTs when he has recovered from this acute episode. - he would benefit from treatment with Advair/Spiriva upon discharge - for now, will continue DUONEBS Q4H scheduled as well as IV steroids - continue antibiotics for total 5 day course of therapy Acute Pulmonary Edema - received 1 dose of Lasix on 05/10 with dramatic improvement in symptoms - repeat another dose of Lasix IV today Anxiety - can get low dose morphine for breathlessness and Ativan for anxiety as needed Daily Alcohol Use: he has not had overt DTs while inpatient. His daughter notes that he drinks a bottle of wine +/- scotch daily. - CIWA Q4H and give Ativan PRN CIWA >7 SHERLYN - wears CPAP at night, but has declined to wear CPAP at night here DVT ppx: Lovenox - Time Time Spent with patient: 25-34 minutes Anticipated Discharge Disposition: Home with Home Health Anticipated Discharge Timeframe: within 48 hours
[2020-05-11] MEDS: ESCITALOPRAM OXALATE 10 MG TABLET PO SCH (21:18)
[2020-05-11] MEDS: ATORVASTATIN CALCIUM 40 MG TABLET PO SCH (21:18)
[2020-05-11] MEDS: CEFTRIAXONE 1 GM/D5W RTU 1 GM/50 ML RTUPB IV SCH (21:18)
[2020-05-11] MEDS: ZOLPIDEM TARTRATE 5 MG TABLET PO SCH (21:19)
[2020-05-11] MEDS: AZITHROMYCIN 500 MG in DEXTROSE 5%-WATER 250 ML IV SCH (22:50)
[2020-05-12] MEDS: IPRATROPIUM/ALBUTEROL 0.5-2.5 MG/3 ML AMPUL NEB SCH ×2 (04:19→08:51)
[2020-05-12 05:20] LABS: HEMATOCRIT 35.9 % (37.9-51.0); HEMOGLOBIN 12.1 g/dL (13.5-17.0); MEAN CORPUSCULAR HEMOGLOBIN 27.6 pg (27.0-33.4); MEAN CORPUSCULAR HGB CONC 33.5 g/dL (32.0-36.0); MEAN CORPUSCULAR VOLUME 82 fl (80-97); PLATELET COUNT 143 10^3/uL (150-450); RED BLOOD COUNT 4.37 10^6/uL (4.35-5.55); RED CELL DISTRIBUTION WIDTH 17.9 % (11.5-14.0); WHITE BLOOD COUNT 7.1 10^3/uL (4.0-10.5)
[2020-05-12] MEDS: HEPARIN SOD (PORCINE) 5,000 UNIT/ML 1 ML VIAL SUBCUT SCH ×2 (05:55→13:21)
[2020-05-12] MEDS: PANTOPRAZOLE SODIUM 40 MG TABLET.DR PO SCH (06:07)
[2020-05-12] MEDS: DUTASTERIDE 0.5 MG CAPSULE PO SCH (09:10)
[2020-05-12] MEDS: LISINOPRIL 10 MG TABLET PO SCH (09:10)
[2020-05-12] MEDS: DEXAMETHASONE SOD PHOSPHATE INJ 4 MG/1 ML VIAL IV SCH (09:10)
[2020-05-12] MEDS: FAMOTIDINE 20 MG TABLET PO SCH (09:10)
[2020-05-12] MEDS: NEBIVOLOL HCL 10 MG TABLET PO SCH (10:46)
[2020-05-12 13:32] VITALS: BP 113/70
[2020-05-12] MEDS: IPRATROPIUM/ALBUTEROL 0.5-2.5 MG/3 ML AMPUL NEB PRN (13:52)
[2020-05-12] MEDS ORDERED: MORPHINE SULFATE 10 MG/ML INJ IV PRN (14:30)
--- NOTE | 2020-05-12 17:01 | PDOC DISCHARGE SUMMARY ---
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 In the ED, he was found to be hypoxemic. He notes that he has 2-3 such episodes per year, normally treated with steroids and breathing treatments in urgent care. He does not have a PCP or [facility] and last PFTs were many years ago; at that time, he states he was diagnosed with "mild COPD" but has not been prescribed any inhaler medications as treatment. He does note that he occasionally uses an albuterol MDI which does not seem to help his symptoms. He also endorses a chronic dry cough. Acute Hypoxemic Respiratory Failure due to Acute COPD Exacerbation: He received treatment with IV antibiotics, IV steroids, and supplemental oxygen. Covid-19 testing was negative x2 and he was successfully weaned off O2 by discharge. Ambulatory saturation on the day of discharge showed O2 saturations >92%. He was prescribed Advair/Spiriva and Duo-Nebs upon discharge, and recommended to follow up with pulmonology for repeat PFTs and screening chest CT given smoking status. He completed a 5 day course of azithromycin/ceftriaxone while inpatient. Acute Pulmonary Edema: due to IVF hydration, and successfully treated with a single dose of Lasix IV on 05/10 with dramatic improvement in symptoms. SHERLYN: wears CPAP at night at home (unknown setting). Nicotine Use: smoking cessation encouraged. Daily Alcohol Use: he had no evidence of withdrawal while inpatient. - Additional Information Resuscitation Status: Full Code Discharge Diet: As Tolerated Discharge Activity: Activity As Tolerated, Balance Activity w/Rest Referrals: [facility] [Provider Group] - 05/18/20 11:15 am (OFFICE # [phone] ) Prescriptions: Fluticasone/Salmeterol [Advair 250-50 Diskus 14 Dose/Diskus] 1 inh IH Q12H #1 inhaler Ipratropium/Albuterol Sulfate [Duoneb 3 ml Ampul] 3 ml NEB RTQ4HP PRN #120 vial.neb PRN Reason: Shortness Of Breath Methylprednisolone [Medrol Dosepack (4 mg/Tab) 21 Tab/Dosepak] 4 mg PO ASDIR PRN #21 tab.ds.pk PRN Reason: Tiotropium [place] [Spiriva Respimat] 4 gm IH DAILY #30 mist.inhal Home Medications: RX: Armodafinil 250 mg PO DAILY 05/08/20 RX: Atorvastatin Calcium [Lipitor 40 mg Tablet] 40 mg PO QHS 05/08/20 RX: Dutasteride 0.5 mg PO DAILY 05/08/20 RX: Escitalopram Oxalate [Lexapro 10 mg Tablet] 20 mg PO QHS 05/08/20 RX: Fenofibrate,Micronized [Fenofibrate] 134 mg PO DAILY 05/08/20 RX: Lisinopril [Prinivil 10 mg Tablet] 60 mg PO DAILY 05/08/20 RX: Nebivolol HCl [Bystolic] 20 mg PO DAILY 05/08/20 RX: Pantoprazole Sodium [Protonix [address] Tablet] 40 mg PO BID 05/08/20 RX: Testosterone 2 pump TOP DAILY MDD ONE PUMP TO EACH ARM 05/08/20 RX: Zolpidem Tartrate [Ambien Cr] 12.5 mg PO QHS 05/08/20 Fluticasone/Salmeterol [Advair 250-50 Diskus 14 Dose/Diskus] 1 inh IH Q12H #1 inhaler 05/12/20 Ipratropium/Albuterol Sulfate [Duoneb 3 ml Ampul] 3 ml NEB RTQ4HP PRN #120 vial.neb 05/12/20 Methylprednisolone [Medrol Dosepack (4 mg/Tab) 21 Tab/Dosepak] 4 mg PO ASDIR PRN #21 tab.ds.pk 05/12/20 Tiotropium [place] [Spiriva Respimat] 4 gm IH DAILY #30 mist.inhal 05/12/20 History of Present Illiness History of Present Illness: SKYLAR YOUNG is a 70 year old male Physical Exam Vital Signs: Temp Pulse Resp BP Pulse Ox 97.8 F 65 18 113/70 96 05/12/20 13:30 05/12/20 13:52 05/12/20 13:52 05/12/20 13:30 05/12/20 13:30 Intake & Output 05/11/20 05/12/20 05/13/20 06:59 06:59 06:59 Intake Total 1480 500 540 Output Total 1700 1075 450 Balance -220 -575 90 Weight 76.8 kg 76.8 kg Results Laboratory Results: WBC 7.1 10^3/uL (4.0-10.5) 05/12/20 04:31 RBC 4.37 10^6/uL (4.35-5.55) 05/12/20 04:31 Hgb 12.1 g/dL (13.5-17.0) L 05/12/20 04:31 Hct 35.9 % (37.9-51.0) L 05/12/20 04:31 MCV 82 fl (80-97) 05/12/20 04:31 MCH 27.6 pg (27.0-33.4) 05/12/20 04:31 MCHC 33.5 g/dL (32.0-36.0) 05/12/20 04:31 RDW 17.9 % (11.5-14.0) H 05/12/20 04:31 Plt Count 143 10^3/uL (150-450) L 05/12/20 04:31 Lymph % (Auto) 5.3 % (13-45) L 05/09/20 04:52 [place] % (Auto) 1.8 % (3-13) L 05/09/20 04:52 Eos % (Auto) 0.0 % (0-6) 05/09/20 04:52 Baso % (Auto) 0.1 % (0-2) 05/09/20 04:52 Absolute Neuts (auto) 5.7 10^3/uL (1.7-8.2) 05/09/20 04:52 Absolute Lymphs (auto) 0.3 10^3/uL (0.5-4.7) L 05/09/20 04:52 Absolute Monos (auto) 0.1 10^3/uL (0.1-1.4) 05/09/20 04:52 Absolute Eos (auto) 0.0 10^3/uL (0.0-0.6) 05/09/20 04:52 Absolute Basos (auto) 0.0 10^3/uL (0.0-0.2) 05/09/20 04:52 Seg Neutrophils % 92.8 % (42-78) H 05/09/20 04:52 D-Dimer 0.94 ug/mL (0.00-0.50) H 05/08/20 00:35 Carbonic Acid 0.81 mmol/L (1.05-1.35) L 05/10/20 12:51 HCO3/H2CO3 Ratio 23:1 05/10/20 12:51 ABG pH 7.47 (7.35-7.45) H 05/10/20 12:51 ABG pCO2 27.0 mmHg (35-45) L 05/10/20 12:51 ABG pO2 51.1 mmHg (80-100) L 05/10/20 12:51 ABG HCO3 19.3 mmol/L (20-24) L 05/10/20 12:51 ABG Total CO2 20.1 mmol/L (23-27) L 05/10/20 12:51 ABG O2 Saturation 89.1 % (94-98) L 05/10/20 12:51 ABG Base Excess -3.1 mmol/L 05/10/20 12:51 VBG pH 7.39 (7.30-7.42) 05/08/20 06:45 VBG pCO2 37.1 mmHg (35-63) 05/08/20 06:45 VBG HCO3 22.1 mmol/L (20-32) 05/08/20 06:45 VBG Base Excess -2.4 mmol/L 05/08/20 06:45 FiO2 6L 05/10/20 12:51 Sodium 134.7 mmol/L (137-145) L 05/11/20 14:20 Potassium 3.9 mmol/L (3.6-5.0) 09/09/20 14:20 Chloride 100 mmol/L (98-107) 05/11/20 14:20 Carbon Dioxide 24 mmol/L (22-30) 05/11/20 14:20 Anion Gap 11 (5-19) 05/11/20 14:20 BUN 16 mg/dL (7-20) 05/11/20 14:20 Creatinine 0.75 mg/dL (0.52-1.25) 05/11/20 14:20 Est GFR ( Amer) > 60 (>60) 05/11/20 14:20 Est GFR (MDRD) Non-Af > 60 (>60) 05/11/20 14:20 Glucose 132 mg/dL (75-110) H 05/11/20 14:20 Lactic Acid 2.5 mmol/L (0.7-2.1) H 05/08/20 06:45 Calcium 8.9 mg/dL (8.4-10.2) 05/11/20 14:20 Magnesium 2.2 mg/dL (1.6-2.3) 05/11/20 14:20 Ferritin 9.26 ng/mL (17.9-464.0) L 05/07/20 18:52 Total Bilirubin 0.7 mg/dL (0.2-1.3) 05/07/20 18:12 Direct Bilirubin 0.4 mg/dL (0.0-0.4) 05/07/20 18:12 Neonat Total Bilirubin Not Reportable 05/07/20 18:12 Neonat Direct Bilirubin Not Reportable 05/07/20 18:12 Neonat Indirect Bili Not Reportable 05/07/20 18:12 AST 38 U/L (17-59) 05/07/20 18:12 ALT 17 U/L (<50) 05/07/20 18:12 Alkaline Phosphatase 44 U/L (38-126) 05/07/20 18:12 C-Reactive Protein 12.6 mg/L (<10.0) H 05/07/20 18:12 Total Protein 6.3 g/dL (6.3-8.2) 05/07/20 18:12 Albumin 3.6 g/dL (3.5-5.0) 05/07/20 18:12 Triglycerides 234 mg/dL (<150) H 09/06/20 06:45 Cholesterol 99.88 mg/dL (0-200) 05/08/20 06:45 LDL Cholesterol Direct 31 mg/dL (<100) 05/08/20 06:45 VLDL Cholesterol 46.8 mg/dL (10-31) H 05/08/20 06:45 HDL Cholesterol 35 mg/dL (>40) L 05/08/20 06:45 TSH 1.23 uIU/mL (0.47-4.68) 05/08/20 06:45 Urine Color YELLOW 05/07/20 20:39 Urine Appearance CLEAR 05/07/20 20:39 Urine pH 5.0 (5.0-9.0) 05/07/20 20:39 Ur Specific [place] 1.019 05/07/20 20:39 Urine Protein NEGATIVE mg/dL (NEGATIVE) 05/07/20 20:39 Urine Glucose (UA) NEGATIVE mg/dL (NEGATIVE) 05/07/20 20:39 Urine Ketones NEGATIVE mg/dL (NEGATIVE) 05/07/20 20:39 Urine Blood SMALL (NEGATIVE) H 05/07/20 20:39 Urine Nitrite (Reflex) NEGATIVE (NEGATIVE) 05/07/20 20:39 Urine Bilirubin NEGATIVE (NEGATIVE) 05/07/20 20:39 Urine Urobilinogen NEGATIVE mg/dL (<2.0) 05/07/20 20:39 Leukocyte Esterase Rfl NEGATIVE (NEGATIVE) 05/07/20 20:39 Urine RBC (Auto) 77 /HPF 05/07/20 20:39 Urine WBC (Reflex) 2 /HPF 05/07/20 20:39 Squamous Epi Cells Auto <1 /HPF 05/07/20 20:39 Urine Mucus (Auto) FEW /LPF 05/07/20 20:39 Urine Ascorbic Acid 40 (NEGATIVE) H 05/07/20 20:39 COVID-19 Source NASOPHARYNGEAL 05/11/20 10:07 COVID-19 ([place]) NOT DETECTED 05/11/20 10:07 Impressions: Chest X-Ray 05/07/20 18:30 IMPRESSION: NO SIGNIFICANT RADIOGRAPHIC FINDING IN THE CHEST. Chest X-Ray 05/10/20 00:00 IMPRESSION: Rehydration versus progressing bilateral pneumonia. Stroke Is this a Stroke Patient?: No Acute Heart Failure Is this a Heart Failure Patient?: No
== END 2020-05-12 14:49 | disposition home health service (06) | DRG 193 ==
LOC: ER 17:28 → EH 22:53 → ICU 05-08 00:56 → 4S 05-09 08:18 → 3N 05-11 19:30
PROVIDERS: ADMIT Emergency Medicine; ATTEND Hospitalist
DX: J18.9 Pneumonia, unspecified organism (principal); J96.01 Acute respiratory failure with hypoxia; J44.1 Chronic obstructive pulmonary disease with (acute) exacerbation; B34.9 Viral infection, unspecified; E78.00 Pure hypercholesterolemia, unspecified; I10 Essential (primary) hypertension; F41.9 Anxiety disorder, unspecified; D69.6 Thrombocytopenia, unspecified; M79.10 Myalgia, unspecified site; G47.33 Obstructive sleep apnea (adult) (pediatric); R11.2 Nausea with vomiting, unspecified; F17.210 Nicotine dependence, cigarettes, uncomplicated; Z20.828 Contact with and (suspected) exposure to other viral communicable diseases; Z60.2 Problems related to living alone; Z72.89 Other problems related to lifestyle; Z79.51 Long term (current) use of inhaled steroids; Z79.899 Other long term (current) drug therapy
CPT/HCPCS: 36415; 36600; 71045; 80048; 80053; 80061; 81001; 82728; 82803; 83605; 83735; 84443; 85025; 85027; 85379; 86140; 87040; 87635; 93005; 93010; 94640; 94660; 96361; 96374; 99285; C9803; J0456; J0696; J1100; J1644; J1940; J2060; J2405; J2550; J3475; J3480; J3490; J7030; J7060; J7121